=== PATIENT | female | born 1960 | race Caucasian/White ===

== ENCOUNTER 2017-10-14 12:48 | Emergency (ER) | payer OTHER ==
[2017-10-14] MEDS ORDERED: oxyCODONE 5 MG Tab PO ONE (13:39)
--- NOTE | 2017-10-14 13:42 | EDM.PDOC ---
ED HPI GENERAL MEDICAL PROBLEM - General Chief Complaint: Upper Extremity Injury/Pain Stated Complaint: TRIPPED ON CEMENT Time Seen by Provider: 10/14/17 13:30 Source of Information: Reports: Patient History Limitations: Reports: No Limitations - History of Present Illness INITIAL COMMENTS - FREE TEXT/NARRATIVE: Carmen is a 57-year-old female, history of osteoarthritis, was going about eat lunch today when she tripped on a elevated lipids concrete, reaching out her right arm to brace her fall. Patient presents here with right hand and right wrist pain. Patient denies any other injuries. Patient did have Tylenol prior to arrival here which has helped minimally. Patient reports that any rotation of her wrist or any clenched fist makes her pain worse. Ice has improved her symptoms. Onset: Sudden Duration: Hour(s): (1) right wrist Pain Score (Numeric/FACES): 6 - Related Data Allergies Allergy/AdvReac Type Severity Reaction Status Date / Time No Known Allergies Allergy Verified 10/14/17 13:27 Home Meds: Home Meds Lisinopril 20 mg PO DAILY 10/14/17 [History] Past Medical History Cardiovascular History: Reports: Hypertension Musculoskeletal History: Reports: Osteoarthritis Social & Family History - Tobacco Use Smoking Status *Q: Never Smoker - Recreational Drug Use Recreational Drug Use: No Review of Systems - Review of Systems Review Of Systems: ROS reveals no pertinent complaints other than HPI. ED EXAM, GENERAL - Physical Exam Exam: See Below Exam Limited By: No Limitations General Appearance: Alert, WD/WN, No Apparent Distress Nose: Normal Inspection Throat/Mouth: Normal Inspection Head: Atraumatic Neck: Normal Inspection Respiratory/Chest: No Respiratory Distress Cardiovascular: Regular Rate, Rhythm Extremities: Normal Capillary Refill, Other (Right wrist is tender to snuffbox region as well as right lateral region along distal ulnar region, capillary refill is intact, distal pulses are intact. Patient also has swelling and ecchymosis to right metacarpal region between fourth and fifth digits on the dorsal aspect.) Neurological: Alert, Oriented, CN II-XII Intact Psychiatric: Normal Affect Skin Exam: Warm, Dry, Intact Lymphatic: No Adenopathy Course - Vital Signs Last Recorded V/S: Last Vital Signs Temp 36.7 C 10/14/17 13:29 Pulse 77 10/14/17 13:29 Resp 12 10/14/17 13:29 BP 139/85 10/14/17 13:29 Pulse Ox 100 10/14/17 13:29 Right distal radius fracture, mild displacement, with no evidence of right hand fracture. Reviewed with Dr. Tobias. Sugar tong splint was applied, good CMS post application. Patient has primary orthopedics that she would like to follow up with, CD copies of x-rays were sent with patient. Rest, ice, elevation, ibuprofen for pain, Percocet for severe pain. Narcotic safety side effects discussed in detail as well as reasons to return to the emergency department. Patient is agreeable to plan of care and discharged in stable condition. - Orders/Labs/Meds Orders: Active Orders 24 hr Category Date Time Status Hand Comp Min 3V Rt [CR] Stat Exams 10/14/17 13:39 Taken Wrist Comp Min 3V Rt [CR] Stat Exams 10/14/17 13:40 Taken Meds: Medications Discontinued Medications Generic Name Dose Route Start Last Admin Trade Name Freq PRN Reason Stop Dose Admin Oxycodone HCl 10 mg 10/14/17 13:39 10/14/17 13:44 Oxycodone PO 10/14/17 13:40 10 mg ONETIME ONE Administration Departure - Departure Time of Disposition: 15:00 Disposition: Home, Self-Care 01 Condition: Good Clinical Impression: Closed fracture of radius Qualifiers: Encounter type: initial encounter Radius location: proximal Fracture morphology : unspecified fracture morphology Laterality: right Qualified Code(s): S52.101A - Unspecified fracture of upper end of right radius, initial encounter for closed fracture - Discharge Information Instructions: Cast or Splint Care, Adult, Radial Fracture Referrals: PCP,None [Primary Care Provider] - Forms: ED Department Discharge Additional Instructions: Rest, ICE and elevate Follow up with primary orthopedic doctor at the end of the week. Ibuprofen 600 mg every 6 hours for pain, Percocet for severe pain as prescribed. Keep splint clean and dry. Return with any concerns. - My Orders Last 24 Hours: My Active Orders 10/14/17 13:39 Hand Comp Min 3V Rt [CR] Stat 10/14/17 13:40 Wrist Comp Min 3V Rt [CR] Stat - Assessment/Plan Last 24 Hours: My Active Orders 10/14/17 13:39 Hand Comp Min 3V Rt [CR] Stat 10/14/17 13:40 Wrist Comp Min 3V Rt [CR] Stat
--- NOTE | 2017-10-15 09:41 | CR ---
Hand Comp Min 3V Rt CLINICAL HISTORY: Pain, fall FINDINGS: There is a slightly displaced to fracture through the base of the fifth metacarpal. There i s a fracture through the base of the radial styloid. Impression: Acute fracture through the base of the fifth metacarpal and the nondisplaced fracture of the styloid process of the radius
--- NOTE | 2017-10-15 09:44 | CR ---
Wrist Comp Min 3V Rt CLINICAL HISTORY: Pain, fall FINDINGS: There is a nondisplaced fracture through the base of the radial styloid. This extends into the radiocarpal joint there are some osteophytic changes in the carpal junctions. There is a displace d fracture through the base of the fifth metacarpal. Impression: Nondisplaced fracture through the styloid process of the radius Disc placed fracture of the base of the fifth metacarpal Osteoarthritic changes
== END 2017-10-14 15:08 | disposition home or self-care (01) ==
LOC: JP.ED 12:48
DX: S52.501A Unspecified fracture of the lower end of right radius, initial encounter for closed fracture (principal); W01.0XXA Fall on same level from slipping, tripping and stumbling without subsequent striking against object, initial encounter; Z79.899 Other long term (current) drug therapy; I10 Essential (primary) hypertension
CPT/HCPCS: 29105; 73110; 73130; 99283; A9270